=== PATIENT | female | born 1970 ===

== ENCOUNTER 2019-04-01 11:00 | Inpatient (IN) | payer OTHER ==
[~2019-04-01] VITALS: Ht 162.6 cm; Wt 65.8 kg
[2019-04-01] MEDS ORDERED: VALSARTAN-HCTZ1 EAC1 PO (11:29)
[2019-04-01] MEDS ORDERED: NORVASC5 MG PO (11:29)
== END 2019-04-05 11:37 | disposition home or self-care (01) | DRG 743 ==
LOC: O/R 11:00 → OB/GYN 04-03 05:49 → O/R 04-03 05:49 → SURH 04-03 08:30 → OB/GYN 04-03 11:08
PROVIDERS: ADMIT Obstetrics & Gynecology
PROC: 0UT00ZZ Resection of Right Ovary, Open Approach (ICD-10-PCS; 2019-04-03)
PROC: 0UT90ZZ Resection of Uterus, Open Approach (ICD-10-PCS; principal; 2019-04-03 08:30)
DX: D25.1 Intramural leiomyoma of uterus (principal); N92.1 Excessive and frequent menstruation with irregular cycle; I10 Essential (primary) hypertension